=== PATIENT | male | born 1995 | race African-American/Black ===

== ENCOUNTER 2023-04-06 19:24 | Emergency (ER) | payer SELFPAY ==
[2023-04-06] MEDS ORDERED: LIDOCAINE 1% 20 ML MDV ONE (20:02)
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
--- NOTE | 2023-04-06 20:10 | ER ---
Nurse's Notes [facility] Name: Frank Greene Age: 27 yrs Sex: Male : 1995 Arrival Date: 04/06/2023 Time: 19:24 Bed 11 Private MD: Diagnosis: LACERATION WITHOUT FOREIGN BODY OF RIGHT ELBOW Presentation: 04/06 19:29 Chief complaint: Patient states: he got a laceration to the back of his right arm. ap3 patient states "im going to say I fell off my skateboard because I don't want to get anyone in trouble". Coronavirus screen: At this time, the client does not indicate any symptoms associated with coronavirus-19. Ebola Screen: No symptoms or risks identified at this time. Complicating Factors: laceration of unknown objected. Initial Sepsis Screen: Does the patient meet any 2 criteria? No. Patient's initial sepsis screen is negative. Does the patient have a suspected source of infection? Yes: Skin breakdown/wound. Risk Assessment: Do you want to hurt yourself or someone else? Patient reports no desire to harm self or others. Onset of symptoms was April 06, 2023. 19:29 Method Of Arrival: Ambulatory ap3 19:29 Acuity: KATHERINE 4 ap3 Triage Assessment: 19:31 General: Appears in no apparent distress. Behavior is calm, cooperative. Pain: ap3 Complains of pain in right bicep. Neuro: Level of Consciousness is awake, alert, obeys commands, Oriented to person, place, time, situation. Cardiovascular: Patient's skin is warm and dry. Respiratory: Airway is patent Respiratory effort is even, unlabored, Respiratory pattern is regular, symmetrical. Derm: Wound noted right bicep. Historical: - Allergies: 19:31 No Known Allergies; ap3 - Home Meds: 19:31 None [Active]; ap3 - PMHx: 19:31 None; ap3 - Immunization history:: Client reports receiving the 2nd dose of the Covid vaccine, Last tetanus immunization: up to date. - Social history:: Smoking status: Patient reports the use of cigarette tobacco products, smokes three packs cigarettes per day. Patient uses street drugs, marijuana. Screenin:32 [facility] ED Fall Risk Assessment (Adult) History of falling in the last 3 months, ap3 including since admission No falls in past 3 months (0 pts). Abuse screen: Denies threats or abuse. Nutritional screening: No deficits noted. Tuberculosis screening: No symptoms or risk factors identified. Vital Signs: 19:29 BP 132 / 91; Pulse 97; Resp 17; Temp 98.1; Pulse Ox 99% ; Weight 63.5 kg; Pain 3/10; ap3 20:47 BP 129 / 81; Pulse 88; Resp 18 S; Pulse Ox 100% on R/A; as6 19:29 Pain Scale: Adult ap3 ED Course: 19:25 Patient arrived in ED. rg4 19:31 Triage completed. ap3 19:32 Arm band placed on right wrist. ap3 19:41 Radha Carrillo FNP-C is [facility]. snw 19:41 Efrain Middleton DO is Attending Physician. snw 20:45 Assist provider with laceration repair on back of right arm that was 2.5 cm. or less as6 using gabriela. Set up tray. Performed by Radha MORENO Dressed with 4X4s, Patient tolerated well. Patient did not have IV access during this emergency room visit. 20:46 Bed in low position. Call light in reach. Provided Education on: wound care. as6 Administered Medications: 20:45 Not Given (Other Intervention Used): Lidocaine Infiltration (1 %) 1 vials 20 ml as6 Infiltration once; to bedside 20:45 Drug: Hibiclens Topical Liquid 4 % 1 application Route: Topical; Site: affected area; as6 20:45 Follow up: Response: No adverse reaction as6 Medication: 20:46 VIS not applicable for this client. as6 Outcome: 20:09 Discharge ordered by . snw 20:46 Discharged to home ambulatory. as6 20:46 Condition: stable 20:46 Discharge instructions given to patient, Instructed on discharge instructions, follow up and referral plans. wound care, Demonstrated understanding of instructions, follow-up care, wound care. 20:47 Patient left the ED. as6 Signatures: Radha Carrillo FNP-C FNP-Maura Lind rg4 Marci Delgado RN RN ap3 Ray Gómez RN RN as6
[2023-04-06 20:54] VITALS: TEMP 98.1
[2023-04-06 20:55] VITALS: BP 129/81; O2SAT 100
== END 2023-04-06 20:47 | disposition home or self-care (01) ==
LOC: ER 19:24
PROC: 0HQBXZZ Repair Right Upper Arm Skin, External Approach (ICD-10-PCS; principal; 2023-04-06)
DX: S51.011A Laceration without foreign body of right elbow, initial encounter (principal)
CPT/HCPCS: 99283; J2001